=== PATIENT | female | born 1990 | race American Indian/Alaskan Native ===

== ENCOUNTER 2020-04-14 19:10 | Emergency (ER) | payer SELFPAY ==
[2020-04-14 19:27] VITALS: BP 129/63
--- NOTE | 2020-04-14 20:06 | XRay Report ---
CLINICAL DATA: right ankle /foot pain TECHNICAL DATA: 3r views of the ankle were obtained in the AP, lateral, and obliques. FINDINGS: Marked soft tissue edema overlying the lateral malleolus. There is no acute fracture, dislocation, or subluxation. The tibial plafond, ankle mortise, and talar dome are intact. IMPRESSION: Soft tissue injury Signer Name: Ej Figueroa MD Signed: 04/14/2020 8:02 PM Workstation Name: [id number]
[2020-04-14] MEDS ORDERED: HYDROcodone/ACETAMINOPHEN 5-325 MG TAB PO ONE (21:12)
--- NOTE | 2020-04-14 21:21 | Emergency Department Report ---
ED Lower Extremity HPI - General Chief Complaint: Extremity Injury, Lower Stated Complaint: ANKLE INJURY/PAIN Time Seen by Provider: 04/14/20 21:11 Source: patient Mode of arrival: Ambulatory Limitations: No Limitations - History of Present Illness Initial Comments: Patient is a 29-year-old obese female who presents for right ankle pain and swelling status post fall from skateboard tonight. There was no LOC patient was immediately however was nonweightbearing after the incident. There is no abrasion laceration or bleeding. There is no obvious deformity. However patient is unable to bear weight. There is no numbness or tingling. Pain described at 8/10 sharp exacerbated by palpation and attempted weightbearing. Pain is relieved by nothing tried. MD Complaint: ankle injury Onset/Timin -: hour(s) Injury: Ankle: Right Type of Injury: eversion Place: street/outdoors Severity: moderate Severity scale (0 -10): 5 Improves With: nothing Worsens With: weight bearing, movement, palpation Context: fall Associated Symptoms: swelling, unable to bear weight - Related Data Previous Rx's Medication Instructions Recorded Last Taken Type Naproxen 500 mg PO BID PRN #30 tablet 04/14/20 Unknown Rx Allergies Allergy/AdvReac Type Severity Reaction Status Date / Time morphine Allergy Seizure Verified 04/14/20 19:28 Penicillins Allergy Swelling Verified 04/14/20 19:28 ED Review of Systems ROS: Stated complaint: ANKLE INJURY/PAIN Other details as noted in HPI Constitutional: denies: chills, fever Eyes: denies: eye pain, eye discharge, vision change ENT: denies: ear pain, throat pain Respiratory: denies: cough, shortness of breath, wheezing Cardiovascular: denies: chest pain, palpitations Endocrine: no symptoms reported Gastrointestinal: denies: abdominal pain, nausea, diarrhea Genitourinary: denies: urgency, dysuria, discharge Musculoskeletal: joint swelling Skin: denies: rash, lesions Neurological: denies: headache, weakness, paresthesias Psychiatric: denies: anxiety, depression Hematological/Lymphatic: denies: easy bleeding, easy bruising ED Past Medical Hx - Past Medical History Previous Medical History?: Yes Hx Asthma: Yes Additional medical history: PUD, Pancreatitis - Surgical History Past Surgical History?: Yes Additional Surgical History: Tonsillitis - Social History Smoking Status: Current Every Day Smoker Substance Use Type: None - Medications Home Medications: Home Medications Medication Instructions Recorded Confirmed Last Taken Type Naproxen 500 mg PO BID PRN #30 tablet 04/14/20 Unknown Rx ED Physical Exam - General Limitations: No Limitations General appearance: alert, in no apparent distress - Head Head exam: Present: atraumatic, normocephalic - Eye Eye exam: Present: normal appearance - ENT ENT exam: Present: mucous membranes moist - Neck Neck exam: Present: normal inspection. Absent: tenderness - Respiratory Respiratory exam: Present: normal lung sounds bilaterally. Absent: respiratory distress - Cardiovascular Cardiovascular Exam: Present: regular rate, normal rhythm. Absent: systolic murmur, diastolic murmur, rubs, gallop - GI/Abdominal GI/Abdominal exam: Present: soft, normal bowel sounds - Rectal Rectal exam: Present: deferred - Extremities Exam Extremities exam: Present: tenderness, normal capillary refill, joint swelling - Expanded Lower Extremity Exam Right Ankle exam: Present: tenderness, swelling, ecchymosis. Absent: abrasion, laceration, deformity, crepidus, erythema, anterior draw sign Foot/Toe exam: Present: full ROM. Absent: tenderness, swelling Neuro vascular tendon exam: Absent: pulse deficit, motor deficit, sensory deficit, tendon deficit Gait: Positive: unable to bear weight - Back Exam Back exam: Present: normal inspection, full ROM. Absent: CVA tenderness (R), CVA tenderness (L), vertebral tenderness - Neurological Exam Neurological exam: Present: alert, oriented X3, CN II-XII intact, normal gait, reflexes normal. Absent: motor sensory deficit - Expanded Neurological Exam Expanded Patient oriented to: Present: person, place, time Motor strength exam: RUE: 5, LUE: 5, RLE: 5, LLE: 5 DTR: ankle (R): 2+, ankle (L): 2+ Best Eye Response ([place]): (4) open spontaneously Best Motor Response ([place]): (6) obeys commands Best Verbal Response ([place]): (5) oriented [place] Total: 15 - Psychiatric Psychiatric exam: Present: normal affect, normal mood - Skin Skin exam: Present: warm, dry, intact, normal color. Absent: rash ED Course Vital Signs 04/14/20 19:22 Temperature 98.9 F Pulse Rate 79 Respiratory 20 Rate Blood Pressure 129/63 O2 Sat by Pulse 98 Oximetry ED Lower Extremity MDM - Radiology Data Radiology results: report reviewed, image reviewed interpreted by me: Findings Reporting MD: Ej Figueroa Dictation Time: April 14, 2020 19:02 Manager Cargo: Not available Case Folder Date: CLINICAL DATA: right ankle /foot pain TECHNICAL DATA: 3r views of the ankle were obtained in the AP, lateral, and obliques. FINDINGS: Marked soft tissue edema overlying the lateral malleolus. There is no acute fracture, dislocation, or subluxation. The tibial plafond, ankle mortise, and talar dome are intact. IMPRESSION: Soft tissue injury Signer Name: Ej Figueroa MD Signed: 04/14/2020 7:02 PM Workstation Name: [id number] - Medical Decision Making xray: soft tissue swelling, no fracture, distal pulses intact , neg starr's test, plan: Velcro Ankle Stirrup, Crutches, NSAIDS prn, follow RICE Therapy follow up with pcp in 2-3 days. pt verbalized agreement and understanding of same. Splint Check complete spacing appropriate. Critical care attestation.: If time is entered above; I have spent that time in minutes in the direct care of this critically ill patient, excluding procedure time. ED Disposition Clinical Impression: Moderate ankle sprain Qualifiers: Encounter type: initial encounter Laterality: right Qualified Code(s): S93.401A - Sprain of unspecified ligament of right ankle, initial encounter Disposition: - TO HOME OR SELFCARE Is pt being admited?: No Does the pt Need Aspirin: No Condition: Stable Instructions: Ankle Sprain (ED), Ankle Stirrup Splint (ED), Ankle Exercises (GEN) Prescriptions: Naproxen 500 mg PO BID PRN #30 tablet PRN Reason: Pain Referrals: JIGNESH ROMO MD [Staff Physician] - 3-5 Days Forms: Work/School Release Form(ED) Time of Disposition: 21:30
== END 2020-04-14 22:30 | disposition home or self-care (01) ==
LOC: ED 19:10
DX: S93.401A Sprain of unspecified ligament of right ankle, initial encounter (principal); J45.909 Unspecified asthma, uncomplicated; F17.200 Nicotine dependence, unspecified, uncomplicated; Z79.899 Other long term (current) drug therapy; Z88.0 Allergy status to penicillin; Z88.6 Allergy status to analgesic agent; Z90.49 Acquired absence of other specified parts of digestive tract; W17.89XA Other fall from one level to another, initial encounter; Y93.51 Activity, roller skating (inline) and skateboarding; Y92.410 Unspecified street and highway as the place of occurrence of the external cause; Y99.8 Other external cause status